=== PATIENT | male | born 1990 | race Caucasian/White ===

== ENCOUNTER 2022-12-19 17:35 | Emergency (ER) | payer OTHER ==
[~2022-12-19] VITALS: Ht 170.2 cm; Wt 68.2 kg
[2022-12-19] MEDS ORDERED: ACET-3385 PO (20:13)
[2022-12-19 20:30] VITALS: BP 121/86
[2022-12-19] MEDS ORDERED: FLUORESCEIN SODIUM 1 MG STRIP OD ONE (21:00)
[2022-12-19] MEDS ORDERED: TETRACAINE HCL/PF 0.5% 4 ML OPHTHALMIC SOLUTION OD ONE (21:00)
[2022-12-19] MEDS ORDERED: ACETAMINOPHEN 325 MG TABLET PO ONE (22:15)
[2022-12-19] MEDS ORDERED: IBUPROFEN 600 MG TABLET PO ONE (22:15)
[2022-12-19] MEDS ORDERED: ACET-784 PO (22:37)
== END 2022-12-19 22:50 ==
LOC: EMS 17:37
DX: R51.9 Headache, unspecified (principal); H57.11 Ocular pain, right eye
CPT/HCPCS: 99283